=== PATIENT | female | born 1970 | race Caucasian/White ===

== ENCOUNTER 2016-10-02 21:49 | Inpatient (IN) | payer BC ==
[~2016-10-02] VITALS: Ht 164.1 cm; Wt 84.1 kg
[2016-10-02 22:30] VITALS: BP 137/84; PULSE 123; TEMP 97.7
[2016-10-02 22:44] VITALS: BP 137/84; PULSE 123; TEMP 97.7
[2016-10-02 22:51] LABS: BASO # 0.1 (0.0-0.2); BASO % 0.3 % (0.0-2.0); EOS % 0.1 % (0-4.0); GRAN % 87.6 % (42.2-75.2); MEAN CELL VOLUME 75 fl (80.0-100.0); MEAN CORPUSCULAR HGB CONC 31 g/dl (33.0-37.0); MEAN PLATELET VOLUME 9.6 fl (7.4-10.4); MONO # 0.9 (0.1-0.6); MONO % 5.2 % (1.7-9.3); PLATELET COUNT 233 K/mm3 (130-400); RED BLOOD COUNT 4.14 M/mm3 (4.10-5.30); WHITE BLOOD COUNT 17.2 K/mm3 (4.8-10.8)
[2016-10-02] MEDS ORDERED: PRENATAL (22:53)
[2016-10-02] MEDS ORDERED: IRON325 MG PO (22:53)
[2016-10-02 23:02] LABS: HEMATOCRIT 30.9 % (37.0-47.0); HEMOGLOBIN 9.7 g/dl (12.5-16.0); MEAN CORPUSCULAR HEMOGLOBIN 23 pg (27.0-31.0)
[2016-10-02 23:06] LABS: ADJUSTED CALCIUM 10.3 mg/dL (8.4-10.2); ALBUMIN 3.3 gm/dL (3.5-5.0); BILIRUBIN,TOTAL 0.7 mg/dL (0.0-1.0); CALCIUM 9.7 mg/dL (8.4-10.2); CREATININE, serum 0.52 mg/dL (0.52-1.25); POTASSIUM 3.8 mmol/L (3.4-5.0); TOTAL PROTEIN 6.5 gm/dL (6.4-8.2)
[2016-10-02 23:30] VITALS: BP 126/75; PULSE 108
[2016-10-02 23:45] VITALS: BP 126/75; PULSE 108
[2016-10-03] VITALS (43 sets, daily range): BP systolic 90–1131; BP diastolic 58–96; PULSE 93–137; TEMP 97.5–98
[2016-10-03 00:16] LABS: AMPHETAMINE URINE NEGATIVE; BARBITURATES URINE NEGATIVE; BENZODIAZEPINES URINE NEGATIVE; BUPRENORPHINE URINE NEGATIVE; METHADONE URINE NEGATIVE; OPIATES URINE NEGATIVE; OXYCODONE URINE NEGATIVE; PHENCYCLIDINE URINE NEGATIVE; PROPOXYPHENE URINE NEGATIVE; THC CANNABINOIDS URINE NEGATIVE
[2016-10-03 00:29] LABS: PH 6 (5-8); SQUAMOUS EPITHELIAL 0-2 /hpf; URINE APPEARANCE Cloudy; URINE BACTERIA Rare /hpf; URINE BILIRUBIN Negative (NEGATIVE); URINE BLOOD 3+ (NEGATIVE); URINE COLOR Yellow; URINE GLUCOSE Negative (NEGATIVE); URINE KETONE 1+ (NEGATIVE); URINE RBC >50 /hpf; URINE UROBILINOGEN Negative (NEGATIVE); URINE WBC >50 /hpf
[2016-10-03 01:46] LABS: HIV 1/2 Antibodies Non-Reactive; HIV-1p24 Antigen Non-Reactive
[2016-10-04 04:00] VITALS: BP 93/64; PULSE 89; TEMP 97.6
[2016-10-04 07:26] LABS: MEAN CELL VOLUME 77 fl (80.0-100.0); MEAN CORPUSCULAR HGB CONC 30 g/dl (33.0-37.0); MEAN PLATELET VOLUME 9.4 fl (7.4-10.4); PLATELET COUNT 184 K/mm3 (130-400); REDCELL DISTRIBUTION WIDTH-CV 17.2 % (11.5-14.5); WHITE BLOOD COUNT 13.5 K/mm3 (4.8-10.8)
[2016-10-04 07:32] LABS: ADD PATHOLOGY DIFF REVIEW NO; HEMATOCRIT 28.4 % (37.0-47.0); HEMOGLOBIN 8.5 g/dl (12.5-16.0); MEAN CORPUSCULAR HEMOGLOBIN 23 pg (27.0-31.0)
[2016-10-04 08:21] LABS: BAND 2 % (0-10); BASOPHIL 1 % (0-2); EOSINOPHIL 2 % (0-4); NEUTROPHILS 83 % (42.0-75.2); TOTAL CELLS COUNTED 100
[2016-10-04 08:22] LABS: ANISOCYTOSIS 2+; MICROCYTOSIS 1+; PLATELET ESTIMATE NORMAL (NORMAL)
[2016-10-04 08:23] LABS: OVALOCYTES 1+
[2016-10-04 09:13] VITALS: BP 113/70; PULSE 79; TEMP 97.5
[2016-10-04 11:14] LABS: RUBELLA AB IGG 0.09 OD Ratio (>1.09); RUBELLA IGG TORCH EIA Negative (())
[2016-10-04 15:01] VITALS: BP 99/67; PULSE 98; TEMP 97.7
[2016-10-04 22:20] VITALS: BP 124/79; PULSE 96; TEMP 97.9
[2016-10-05] MEDS ORDERED: IBU800 M1 PO (08:19)
[2016-10-05] MEDS ORDERED: PERCOCET 325 MG1 TA2 PO (08:19)
[2016-10-05 08:25] VITALS: BP 114/70; PULSE 90; TEMP 97.3
== END 2016-10-05 12:15 | disposition home or self-care (01) | DRG 766 ==
LOC: LDRO 21:49 → LDR 22:29 → OB 22:29
PROVIDERS: Student in an Organized Health Care Education/Training Program
PROC: 10D00Z1 Extraction of Products of Conception, Low, Open Approach (ICD-10-PCS; principal; 2016-10-03)
DX: O42.02 Full-term premature rupture of membranes, onset of labor within 24 hours of rupture (principal); O09.33 Supervision of pregnancy with insufficient antenatal care, third trimester; O09.43 Supervision of pregnancy with grand multiparity, third trimester; O09.523 Supervision of elderly multigravida, third trimester; O99.02 Anemia complicating childbirth; D64.9 Anemia, unspecified; O87.4 Varicose veins of lower extremity in the puerperium; O75.89 Other specified complications of labor and delivery; Z3A.38 38 weeks gestation of pregnancy; Z37.0 Single live birth
CPT/HCPCS: J0330; J0690; J1885; J2210; J2400; J2405; J2540; J2590; J2704; J3010; J7120